=== PATIENT | female | born 1990 | race Caucasian/White ===

== ENCOUNTER 2021-12-05 03:14 | Emergency (ER) | payer OTHER, SELFPAY ==
--- NOTE | ~2021-12-05 | XR_ITS ---
EXAMINATION: XR chest 2V DATE: 12/05/2021 05:31 INDICATION: Epigastric and back pain TECHNIQUE: PA and lateral views of the chest were obtained. COMPARISON: None FINDINGS: The lungs are clear with no focal airspace opacities, pulmonary edema, pleural effusion or pneumothor ax. The cardiomediastinal silhouette is normal. Mild thoracic spondylosis with minimal anterior wedgi ng of a couple mid thoracic vertebral bodies. IMPRESSION: 1. No acute cardiopulmonary disease. Reviewed, dictated and finalized at location A.
[2021-12-05 03:15] VITALS: BP 135/77; PULSE 102; RESP 16; TEMP 36.1; O2SAT 100
[2021-12-05 04:09] LABS: Basophils Percent Auto 0.3 % (0.2-1.2); Eosinophils Absolute Auto 0.1 K/mm3 (0-0.3); Eosinophils Percent Auto 1.2 % (0-4.4); Hematocrit 37.7 % (37.0-47.0); Hemoglobin 12.6 g/dL (12.0-15.0); Immature Granulocyte Absolute 0.02 K/mm3 (0.00-0.031); Immature Granulocyte Percent A 0.2 % (0-0.5); Lymphocytes Absolute Auto 3.82 K/mm3 (0.9-3.2); Mean Corpuscular HGB Conc 33.4 g/dl (32-36); Mean Corpuscular Hemoglobin 27.6 pg (26-34); Mean Corpuscular Volume 82.7 fl (80-100); Mean Platelet Volume 9.6 fl (7.4-10.4); Monocytes Absolute Auto 0.5 K/mm3 (0.1-0.6); Monocytes Percent Auto 5.7 % (2.6-8.5); Neutrophils Absolute Auto 4.6 K/mm3 (1.3-6.7); Neutrophils Percent Auto 50.6 % (45.5-73.1); Platelet Count Result 281 k/mm3 (150-375); Red Blood Count 4.56 M/mm3 (4.2-5.4); Red Cell Distribution Width 13.1 % (11.5-14.5); White Blood Count 9.1 K/mm3 (4.5-10.0)
[2021-12-05 04:14] LABS: Appearance Urine Clear (Clear); Bacteria Urine Trace /hpf; Bilirubin Urine 1+ (Negative); Blood Urine Negative (Negative); Color Urine Yellow (Yellow); Glucose Urine UA Negative (Negative); Ketones Urine Trace mg/dL (Negative); Leukocyte Esterase Ur 3+ LEU/UL (Negative); Mucus Urine Rare /lpf; Nitrate Urine Negative (Negative); Protein Urine Trace mg/dL (Negative); Specific Grav Ur >= 1.030 (1.001-1.035); Squamous Epithelial Cell Urine Many /hpf (Few); Urobilinogen Urine 0.2 mg/dL (<2.0); WBC Urine 31-50 /hpf; pH Urine 5.5 (5.0-9.0)
[2021-12-05 04:20] LABS: Add Urine Microscopic? YES
[2021-12-05 04:21] LABS: Alanine Aminotransferase 18 U/L (6-35); Albumin Level 3.9 g/dL (3.5-5.1); Alkaline Phosphatase 70 U/L (38-126); Anion Gap 9 mmol/L (8-16); Aspartate Amino Transferase 19 U/L (14-36); Bilirubin,Total 0.3 mg/dL (0.2-1.3); Blood Urea Nitrogen 15 mg/dL (7-17); Calcium 9.4 mg/dL (8.4-10.2); Carbon Dioxide 21 mmol/L (22-30); Chloride 105 mmol/L (98-107); Estimated CRCL calculation 124 ml/min; Estimated Glomerular Filt Rate > 60; Glucose 121 mg/dL (65-110); Lipase 205 U/L (23-300); Potassium 3.8 mmol/L (3.4-5.0); Sodium 135 mmol/L (137-145)
--- NOTE | 2021-12-05 04:44 | ECG_ITS ---
Measurements Intervals [place] Rate: 70 P: 22 UT: 193 QRS: 42 QRSD: 96 T: 38 QT: 379 QTc: 411 Interpretive Statements SINUS RHYTHM NORMAL ECG NO PREVIOUS ECG AVAILABLE FOR COMPARISON Electronically Signed On 12-05-2021 6:31:09 CDT by Shaji Buckley D.O.
[2021-12-05] MEDS: SODIUM CHLORIDE 0.9% IV 1,000 ML 999 ML IV CONT (05:00)
[2021-12-05] MEDS: MAG HYDROX/AL HYDROX/SIMETH 30 ML UDC PO (05:01)
[2021-12-05] MEDS: FAMOTIDINE 20 MG/2 ML VIAL IV PUSH (05:01)
[2021-12-05 05:07] LABS: D Dimer 0.37 ug/mL (<0.48)
[2021-12-05 05:13] LABS: NT Pro B Type Natriuretic Pept 25 pg/mL (5-100)
--- NOTE | 2021-12-05 05:14 | ED.GENADULT ---
HPI - General Adult General Chief complaint: Abdominal Pain Stated complaint: abdominal pain and upper back pain Time Seen by Provider: 12/05/21 03:51 History of Present Illness HPI narrative: This is a 31-year-old female presenting to the ED with a chief complaint of epigastric pain that radiates through her chest up into her back. Patient states that the pain started at 1:00 a.m. this morning. She describes as a stabbing pain that radiates to her back, is 6/10 in intensity, comes and goes. She experiences once 2 and half weeks ago but did not seek medical care time. At that point resulting in its own. There are no exacerbating or alleviating factors. Patient denies nausea vomiting or diarrhea. She denies fever, chills or productive cough. She denies lower extremity edema, history of blood clots, recent trauma surgery or cancer. The patient has been taking a significant amount of Motrin without any relief. Related Data Allergies Allergy/AdvReac Type Severity Reaction Status Date / Time No Known Allergies Verified 01/19/10 14:17 Review of Systems Review of Systems: CONSTITUTIONAL: Denies night sweats. EYES: No eye pain ENT: Denies rhinorrhea CARDIOVASCULAR: Denies palpitations RESPIRATORY: Denies hemoptysis GASTROINTESTINAL: Denies hematemesis GENITOURINARY: Denies hematuria. SKIN: Denies rash MUSCULOSKELETAL: Denies myalgia. NEUROLOGIC: Denies weakness. PSYCHIATRIC: Denies delusions Course Vital Signs Vital signs: Vital Signs Temperature 97 F L 12/05/21 03:15 Pulse Rate 102 H 12/05/21 03:15 Respiratory Rate 16 12/05/21 03:15 Blood Pressure 135/77 12/05/21 03:15 Pulse Oximetry 100 12/05/21 03:15 Oxygen Delivery Room Air 12/05/21 03:15 Temperature 97 F L 12/05/21 03:15 Pulse Rate 102 H 12/05/21 03:15 Respiratory Rate 16 12/05/21 03:15 Blood Pressure 135/77 12/05/21 03:15 Pulse Oximetry 100 12/05/21 03:15 Oxygen Delivery Room Air 12/05/21 03:15 Medical Decision Making [facility] Narrative Medical decision making narrative: This is a 31-year-old female presenting to the ED with epigastric pain that radiates to her chest and back. Differential is broad and includes gastritis, peptic ulcer disease, gallbladder disease, pulmonary embolism, musculoskeletal pain. The patient's abdominal exam is benign and CT imaging is not indicated at this time. Lab work including CMP, lipase, CBC, troponin BNP and D-dimer ordered. Patient is not given a treatment with Pepcid and Maalox. Chest x-ray was unremarkable. Lab work was within acceptable limits. D-dimer was negative the patient is low risk no further evaluation for PE is required. The only positive finding on the patient's workup was a urinalysis that showed 31-50 white blood cells, 6-10 red blood cells, +3 leuk esterases. When the question the patient but she denies any urinary symptoms. she denies vaginal discharge or irritation. She does not have CVA tenderness. She is monogamous with her fiance and has no concern for STDs at this time. While her urinalysis is definitely indicative of UTI I am not sure if I can attribute her epigastric and upper back pain to a UTI. Upon re-evaluation the patient's heart rate has improved with fluids. the patient's abdominal pain has improved with the Maalox and the Pepcid. At this time her presentation is most consistent with gastritis. She will be discharged home with a 6 week prescription for Pepcid. Differential Diagnosis Differential Diagnosis: Gastritis, peptic ulcer disease, ACS, pulmonary embolism, pneumonia, MSK Vital Signs Vital Signs: Vital Signs Temperature 97 F L 12/05/21 03:15 Pulse Rate 102 H 12/05/21 03:15 Respiratory Rate 16 12/05/21 03:15 Blood Pressure 135/77 12/05/21 03:15 Pulse Oximetry 100 12/05/21 03:15 Oxygen Delivery Room Air 12/05/21 03:15 Temperature 97 F L 12/05/21 03:15 Pulse Rate 102 H 12/05/21 03:15 Respiratory Rate
[2021-12-05 05:48] LABS: Troponin I < 0.012 ng/mL (0.000-0.034)
[2021-12-05 06:40] VITALS: PULSE 89; RESP 16; O2SAT 99
== END 2021-12-05 06:40 | disposition home or self-care (01) ==
PROVIDERS: Emergency Provider Emergency Medicine
DX: K29.70 Gastritis, unspecified, without bleeding (principal); N39.0 Urinary tract infection, site not specified
CPT/HCPCS: 36415; 71046; 80053; 81001; 81025; 83690; 83880; 84484; 85025; 85380; 87086; 93005; 96361; 96374; 99284; A9270; J7030

== ENCOUNTER 2022-04-01 11:21 | Emergency (ER) | payer OTHER, SELFPAY ==
[2022-04-01 11:30] VITALS: BP 121/77; PULSE 113; RESP 16; TEMP 36.3; O2SAT 99
--- NOTE | 2022-04-01 11:52 | ED.GENADULT ---
HPI - General Adult General Chief complaint: Skin/Abscess/Foreign Body Stated complaint: lump on chest Source: patient Mode of arrival: ambulatory Limitations: no limitations History of Present Illness HPI narrative: Patient presents for evaluation of a bump to the the sternal region for awhile . In the last few days she has noted worsening symptoms. She now reports redness. She denies any drainage from the affected area. No fever, chills, nausea, vomiting. She is not diabetic. She does not smoke. She has not tried any therapies to assist with her symptoms. No additional complaints or concerns. Related Data Allergies Allergy/AdvReac Type Severity Reaction Status Date / Time No Known Allergies Verified 01/19/10 14:17 Review of Systems Review of Systems: CONSTITUTIONAL: Denies fever, chills, or sweats. EYES: Denies visual changes, redness, or discharge. ENT: Denies rhinorrhea, congestion, sore throat, or otalgia. CARDIOVASCULAR: Denies chest pain, palpitations, or edema. RESPIRATORY: Denies cough or dyspnea. GASTROINTESTINAL: Denies abdominal pain, nausea, vomiting, or diarrhea. GENITOURINARY: Denies dysuria or hematuria. SKIN: Reports painful erythematous lesion to sternal region MUSCULOSKELETAL: Denies back pain, joint pain, or myalgia. NEUROLOGIC: Denies headache, numbness, dizziness, or weakness. PSYCHIATRIC: Denies anxiety or depression. PMFSH Past Medical History Medical History No pertinent past medical history Surgical History Surgical History (Updated 04/01/22 @ 12:05 by Heber Madrid, [facility], ) No pertinent past surgical history Family History Family History Mother Family history non-contributory Social History Social History Smoking status: Never smoker Substance use: never Gender identity (if verbalized by the patient): Female Sexual Orientation (if Verbalized by the Patient): Straight or Heterosexual Spiritual care concerns: No Exam Narrative: GENERAL: Well-appearing, well-nourished, and in no acute distress. HEAD: Normocephalic, atraumatic. EYES: PERRLA and EOMI. ENT: Nares clear, no rhinorrhea or epistaxis. Mucous membranes moist. Oropharynx without tonsillar hypertrophy exudate or other lesions. Bilateral TMs pearly frausto nonbulging NECK: Supple. No adenopathy or masses. No carotid bruits or JVD CHEST: Clear to auscultation. No respiratory distress. No wheezes rales or rhonchi HEART: Regular rate and rhythm. No murmur heard. Normal peripheral pulses. ABDOMEN: Soft, nontender, nondistended, normal active bowel sounds. EXTREMITIES: Normal range of motion. No edema. SKIN: Approximately 2 cm of erythema with underlying induration noted to sternal region which is tender to palpation NEURO: No focal deficits. Alert and oriented x3. PSYCH: Normal mood and affect. Course Course Emergency Course: This is a 31-year-old female who presented for evaluation painful erythematous area to the sternum. Her exam is consistent with infected sebaceous cyst. There is no fluctuant area suggesting drainable fluid collection. Place her on Bactrim and Keflex. She should follow up with plastics to have cyst excision. She was advised not to manipulate area. Go to the ER for systemic signs of infection. Patient in agreement with plan of care. Level of Care: Express Care Visit Vital Signs Vital signs: Vital Signs Temperature 36.3 C L 04/01/22 11:30 Pulse Rate 113 H 04/01/22 11:30 Respiratory Rate 16 04/01/22 11:30 Blood Pressure 121/77 04/01/22 11:30 Pulse Oximetry 99 04/01/22 11:30 Temperature 36.3 C L 04/01/22 11:30 Pulse Rate 113 H 04/01/22 11:30 Respiratory Rate 16 04/01/22 11:30 Blood Pressure 121/77 04/01/22 11:30 Pulse Oximetry 99 04/01/22 11:30 Medic
== END 2022-04-01 12:08 | disposition home or self-care (01) ==
PROVIDERS: Emergency Provider Nurse Practitioner
DX: L72.3 Sebaceous cyst (principal)
CPT/HCPCS: 99213; G0463

== ENCOUNTER 2022-08-01 17:28 | Emergency (ER) | payer OTHER, SELFPAY ==
--- NOTE | ~2022-08-01 | XR_ITS ---
EXAMINATION: XR chest 2V Exam Date/Time: 08/01/2022 17:52 CDT HISTORY: BACK UPPER L.CHEST SIDE PAIN GOING DOWN L.ARM. Comparison: 12/05/2021. RESULT: Lines, tubes, and devices: None. Lungs and pleura: Left hemidiaphragm elevation. Mildly decreased lung volumes with crowding. Cardiomediastinal silhouette: Stable. Other: No acute osseous or upper abdominal finding. IMPRESSION: No acute cardiopulmonary process. Reviewed, dictated and finalized at location K.
--- NOTE | 2022-08-01 17:30 | ECG_ITS ---
Measurements Intervals [place] Rate: 104 P: 47 AR: 201 QRS: 14 QRSD: 90 T: 52 QT: 342 QTc: 451 Interpretive Statements SINUS TACHYCARDIA BASELINE ARTIFACT- I, II, III, AVR, AVL, AVF BORDERLINE ECG COMPARED TO ECG 12/05/2021 05:16:08 SINUS TACHYCARDIA NOW PRESENT Electronically Signed On 08-01-2022 21:11:36 CDT by Shaji Buckley D.O.
[2022-08-01 17:38] VITALS: BP 139/84; PULSE 106; RESP 18; TEMP 36.2; O2SAT 100
[2022-08-01 17:43] LABS: Basophils Percent Auto 0.3 % (0.2-1.2); Eosinophils Absolute Auto 0.1 K/mm3 (0-0.3); Hemoglobin 13.6 g/dL (12.0-15.0); Immature Granulocyte Absolute 0.03 K/mm3 (0.00-0.031); Immature Granulocyte Percent A 0.3 % (0-0.5); Lymphocytes Absolute Auto 4.15 K/mm3 (0.9-3.2); Lymphocytes Percent Auto 36.3 % (18.3-44.2); Mean Corpuscular HGB Conc 33.2 g/dl (32-36); Mean Corpuscular Hemoglobin 27.7 pg (26-34); Mean Corpuscular Volume 83.5 fl (80-100); Mean Platelet Volume 9.5 fl (7.4-10.4); Monocytes Absolute Auto 0.7 K/mm3 (0.1-0.6); Neutrophils Absolute Auto 6.4 K/mm3 (1.3-6.7); Neutrophils Percent Auto 56.1 % (45.5-73.1); Platelet Count Result 354 k/mm3 (150-375); Red Blood Count 4.91 M/mm3 (4.2-5.4); Red Cell Distribution Width 13.1 % (11.5-14.5); White Blood Count 11.4 K/mm3 (4.5-10.0)
[2022-08-01 17:51] LABS: Alanine Aminotransferase 27 U/L (6-35); Albumin Level 4.9 g/dL (3.5-5.1); Alkaline Phosphatase 80 U/L (38-126); Anion Gap 12 mmol/L (8-16); Aspartate Amino Transferase 39 U/L (14-36); Bilirubin,Total 0.5 mg/dL (0.2-1.3); Blood Urea Nitrogen 12 mg/dL (7-17); Calcium 8.9 mg/dL (8.4-10.2); Carbon Dioxide 24 mmol/L (22-30); Chloride 103 mmol/L (98-107); Estimated CRCL calculation 136 ml/min; Estimated Glomerular Filt Rate > 60; Glucose 98 mg/dL (65-110); Lipase 266 U/L (23-300); Potassium 4.2 mmol/L (3.4-5.0); Sodium 139 mmol/L (137-145)
[2022-08-01 18:02] LABS: Troponin I < 0.012 ng/mL (0.000-0.034)
[2022-08-01 18:07] LABS: Prothrombin Time 13.5 Seconds (11.1-14.7)
[2022-08-01 18:08] LABS: Partial Thromboplastin Time 29.8 SECONDS (22.3-36.8)
[2022-08-01 19:37] VITALS: BP 121/85; PULSE 121; RESP 19; TEMP 36.6; O2SAT 100
--- NOTE | 2022-08-01 19:40 | ED.CHESTPAIN ---
HPI - Chest Pain General Chief Complaint: Chest Pain <CRISS Prado Last Filed: 08/02/22 02:33> Stated Complaint: chest pain <CRISS Prado Last Filed: 08/02/22 02:33> Time Seen by Provider: 08/01/22 19:36 <CRISS Prado Last Filed: 08/02/22 02:33> History of Present Illness HPI narrative: Patient is a 32-year-old female here for evaluation of chest pain earlier today. Patient states that she developed a tightness in the left side of her chest while she was studying at rest. The pain was severe in nature and lasted for about 40 minutes. States she has never had pain like this in the past. Associated with some mild difficulty breathing. States that her pain is since resolved without intervention. She denies any sick contacts, nausea vomiting, cough or congestion, leg swelling or pain. She did recently have a 17-hour car ride to [place]. <CRISS Prado Last Filed: 08/02/22 02:33> Related Data Allergies/Adverse Reactions: Allergies Allergy/AdvReac Type Severity Reaction Status Date / Time No Known Allergies Verified 08/03/22 22:11 <CRISS Prado Last Filed: 08/02/22 02:33> Review of Systems Review of Systems: Gen: Denies fevers or chills Eyes: Denies eye pain or visual change ENT: Denies congestion Respiratory: Reports shortness of breath CV: Reports chest pain GI: Denies abdominal pain nausea, emesis or diarrhea : denies burning, urgency, frequency or hematuria Musculoskeletal: Denies back pain or muscle pain Neuro: Denies numbness, tingling, weakness or focal weakness Skin: Denies rash Except as documented, all other systems reviewed and negative <CRISS Prado Last Filed: 08/02/22 02:33> [facility] Past Medical History Medical History: Medical History Obesity (BMI 30-39.9) <CRISS Prado Filed: 08/02/22 02:33> Surgical History Surgical History: Surgical History No pertinent past surgical history <Marita White PA-C - Last Filed: 08/02/22 02:33> Family History Family History: Family History Mother No significant medical problems Father Unknown family medical history <Marita White PA-C - Last Filed: 08/02/22 02:33> Social History Social History: Social History Social History: She lives at home with her fiance and her 3 children. The children her age is 12 7 and 5. She is currently in college studying psychology. She does not drink alcohol, smoke or use illicit substances. Code status: Full code Surrogate decision maker: Kriss Vee (mother) Smoking status: Never smoker Second hand tobacco smoke exposure: No Alcohol intake: never Substance use: never Lack of Transportation: No Lack of Food: Never True Current Housing: I Have Housing Concerned About Future Housing: No Difficulty Paying Gas/Electric Bills: No Difficulty Paying for Meds: No Currently Unemployed: No Education: Trade/Vocational Certificate Difficulty w/ Childcare or Family Care: No Gender identity (if verbalized by the patient): Female Sexual Orientation (if Verbalized by the Patient): Straight or Heterosexual Spiritual care concerns: No <Marita White PA-C - Last Filed: 08/02/22 02:33> Exam Narrative: APPEARANCE: Well appearing, no pain in distress, well-nourished. Head: Normocephalic and atraumatic. EYES: PERRLA/EOMI, conjunctivae clear NOSE: No nasal drainage EARS: External ear normal in appearance THROAT: Oropharynx is clear. Mucous membranes are moist. NECK: Supple. No adenopathy, no masses. RESPIRATORY: Airway patent, respirations nonlabored. Clear to auscultation bilater
[2022-08-01 20:27] LABS: D Dimer < 0.27 ug/mL (<0.48)
[2022-08-01 20:53] VITALS: BP 115/78; PULSE 105; RESP 16; O2SAT 99
== END 2022-08-01 20:56 | disposition home or self-care (01) ==
PROVIDERS: Emergency Medicine; Emergency Provider Physician Assistant
DX: R07.89 Other chest pain (principal); R00.0 Tachycardia, unspecified
CPT/HCPCS: 36415; 71046; 80053; 83690; 84484; 85025; 85380; 85610; 85730; 93005; 99284

== ENCOUNTER 2022-08-03 22:10 | Inpatient (IN) | payer OTHER, SELFPAY ==
--- NOTE | ~2022-08-03 | MR_ITS ---
EXAMINATION: MR MRCP wo/w con/w 3D wo ind DATE: 08/04/2022 09:22 INDICATION: Gallstone pancreatitis. Abdominal pain. TECHNIQUE: Magnetic resonance imaging (MRI) of the abdomen was performed without and with 20 mL Multi Eli intravenous contrast. Sequences included coronal T2-weighted FS FSE, coronal T2-weighted FSE, a xial T1-weighted LAVA, coronal FS FIESTA, axial dual-echo T1-weighted SPGR, coronal lava-FLEX, sagitt al T2-weighted FSE, axial T2-weighted FSE, and axial DWI. Thick-slab T2-weighted FSE images were obta ined for magnetic resonance cholangiopancreatography (MRCP). Maximum intensity projection 3-D reconst ructions of the volumetric data were created by the technologist. Postcontrast sequences included cor onal LAVA-flex and time course of axial T1-weighted LAVA. COMPARISON: CT abdomen and pelvis 08/04/2022 FINDINGS: ABDOMEN MRI: There is periportal edema in the liver. There is a 14 mm arterially hyperenhancing mass in segment 4A of the liver without washout, likely focal nodular hyperplasia or transient hepatic int ensity difference. The spleen is normal. There are gallstones in the gallbladder, which is distended. Gallbladder wall thickening is noted. There is edema around the pancreas and at the italia hepatis. T he pancreas enhances throughout. The adrenal glands and kidneys are normal. There is a small sliding hiatal hernia. There are no dilated loops of bowel. ABDOMEN MRCP: The common duct is normal and measures 5 mm. No choledocholithiasis. IMPRESSION: 1. Acute cholecystitis. 2. Acute interstitial pancreatitis. 3. Normal common duct caliber. No choledocholithiasis. 4. Small sliding hiatal hernia. Reviewed, dictated and finalized at location E.
--- NOTE | ~2022-08-03 | CT_ITS ---
EXAMINATION: CT abdomen pelvis w con DATE: 08/04/2022 01:19 INDICATION: Right upper quadrant and epigastric pain TECHNIQUE: Computed tomography (CT) of the abdomen and pelvis was performed with 100 cc Omnipaque 350 intravenous contrast. The dose-length product was 1439.42 mGy-cm. Automated exposure control and ite rative reconstruction technique were employed. COMPARISON: CT dated 01/14/2007 FINDINGS: Lung bases are unremarkable. No significant pleural or pericardial effusion. Heart size is normal. No significant vascular abnormality. No lymphadenopathy. No abnormal pelvic masses or fluid c ollections. There is gallbladder distention with gallstones. There is mild inflammation at the italia hepatis irina cent to the common bile duct, suspicious for ascending cholangitis. The spleen, pancreas, adrenal gla nds and kidneys are unremarkable. Nonobstructive bowel pattern. IMPRESSION: 1. Cholelithiasis with gallbladder distention, mild inflammatory changes at the italia hepatis, concer onel for ascending cholangitis. Consider correlation with MRCP to exclude obstructing choledocholithi asis. Reviewed, dictated and finalized at location A. IMPRESSION: 1. Cholelithiasis with gallbladder distention, mild inflammatory changes at the italia hepatis, concerning for ascending cholangitis. Consider correlation with MRCP to exclude obstructing choledocholithiasis.
[2022-08-03 22:19] VITALS: BP 129/81; PULSE 94; RESP 14; TEMP 36.3; O2SAT 98
[2022-08-04] VITALS (13 sets, daily range): BP systolic 95–142; BP diastolic 50–88; PULSE 69–88; RESP 14–18; TEMP 36.4–36.6; O2SAT 96–100; BMI 37.1
--- NOTE | 2022-08-04 00:03 | ED.BACK ---
HPI - Back Pain/Injury General Chief Complaint: Back Pain/Injury <Sherin Yates PA-C - Last Filed: 08/04/22 03:52> Stated Complaint: back pain x 4 days <CRISS Alejandra Last Filed: 08/04/22 03:52> Time Seen by Provider: 08/03/22 23:41 <CRISS Alejandra Last Filed: 08/04/22 03:52> History of Present Illness HPI Narrative: 32-year-old female without pertinent past medical history reports for evaluation of midthoracic pain intermittently for 1 month, persistent and worsening over the past 2 days along with epigastric pain. She reports 3 episodes of vomiting in the past 2 days. Denies diarrhea, constipation, numbness weakness or tingling in her extremities, neck pain or headache, trauma to her back, bowel or bladder control, saddle anesthesia, IV drug use, fever. She does not take steroids or immunosuppressants. She reports worsening back pain with flexion, and worsening abdominal pain when she lays down. Denies history of abdominal surgeries. <CRISS Alejandra Last Filed: 08/04/22 03:52> Related Data Allergies/Adverse Reactions: Allergies Allergy/AdvReac Type Severity Reaction Status Date / Time No Known Allergies Verified 08/03/22 22:11 <Sherin Yates PA-C - Last Filed: 08/04/22 03:52> Review of Systems Review of Systems: CONSTITUTIONAL: Denies fever, chills EYES: Denies visual changes, redness, or discharge. ENT: Denies rhinorrhea, congestion, sore throat, or otalgia. CARDIOVASCULAR: Denies chest pain, palpitations, or edema. RESPIRATORY: Denies cough or dyspnea. GASTROINTESTINAL: See HPI GENITOURINARY: Denies dysuria or hematuria. SKIN: Denies rash or itching. MUSCULOSKELETAL: See HPI NEUROLOGIC: Denies headache, numbness, dizziness, or weakness. PSYCHIATRIC: Denies anxiety or depression. <CRISS Alejandra Last Filed: 08/04/22 03:52> [facility] Past Medical History Medical History: Medical History Obesity (BMI 30-39.9) <Sherin Yates PA-C - Last Filed: 08/04/22 03:52> Surgical History Surgical History: Surgical History No pertinent past surgical history <Sherin Yates PA-C - Last Filed: 08/04/22 03:52> Family History Family History: Family History Mother No significant medical problems Father Unknown family medical history <Sherin Yates PA-C - Last Filed: 08/04/22 03:52> Social History Social History: Social History Social History: She lives at home with her fiance and her 3 children. The children her age is 12 7 and 5. She is currently in college studying psychology. She does not drink alcohol, smoke or use illicit substances. Code status: Full code Surrogate decision maker: Krisssa Vee (mother) Smoking status: Never smoker Second hand tobacco smoke exposure: No Alcohol intake: never Substance use: never Lack of Transportation: No Lack of Food: Never True Current Housing: I Have Housing Concerned About Future Housing: No Difficulty Paying Gas/Electric Bills: No Difficulty Paying for Meds: No Currently Unemployed: No Education: Trade/Vocational Certificate Difficulty w/ Childcare or Family Care: No Gender identity (if verbalized by the patient): Female Sexual Orientation (if Verbalized by the Patient): Straight or Heterosexual Spiritual care concerns: No <Sherin Yates PA-C - Last Filed: 08/04/22 03:52> Exam Narrative: GENERAL: Well-appearing, in no acute distress. HEAD: Normocephalic EYES: PERRLA ENT: Nares clear. Mucous membranes moist. Oropharynx without tonsillar hypertrophy exudate or other lesions. NECK: Supple. CHEST: No respiratory distress. Clear to auscultation, no adventitious breath sounds. HEART: Regu
--- NOTE | 2022-08-04 00:21 | ECG_ITS ---
Measurements Intervals [place] Rate: 80 P: 14 FL: 202 QRS: 8 QRSD: 133 T: 28 QT: 358 QTc: 413 Interpretive Statements SINUS RHYTHM NORMAL ECG COMPARED TO ECG 08/01/2022 17:35:16 SINUS RHYTHM NOW PRESENT Electronically Signed On 08-04-2022 12:59:08 CDT by Sahji Buckley D.O.
[2022-08-04] MEDS: BELLADONNA ALK/PHENOB ELIX 10 ML, MAG HYDROX/ALUMINUM HYD/SIMETH 30 ML, LIDOCAINE HCL 2... PO (00:23)
[2022-08-04] MEDS: ONDANSETRON INJ 4 MG/2 ML VIAL IV PUSH (00:25)
[2022-08-04] MEDS: SODIUM CHLORIDE 0.9% IV 1,000 ML 999 ML IV CONT (00:25)
[2022-08-04] MEDS: FAMOTIDINE 20 MG/2 ML VIAL IV PUSH (00:26)
[2022-08-04] MEDS: KETOROLAC 30 MG/ML VIAL (*BKC) IV PUSH (00:26)
[2022-08-04 00:29] LABS: Basophils Percent Auto 0.4 % (0.2-1.2); Eosinophils Absolute Auto 0.1 K/mm3 (0-0.3); Eosinophils Percent Auto 1.1 % (0-4.4); Hematocrit 42.5 % (37.0-47.0); Hemoglobin 14.1 g/dL (12.0-15.0); Immature Granulocyte Absolute 0.02 K/mm3 (0.00-0.031); Immature Granulocyte Percent A 0.2 % (0-0.5); Lymphocytes Absolute Auto 1.82 K/mm3 (0.9-3.2); Lymphocytes Percent Auto 21.5 % (18.3-44.2); Mean Corpuscular HGB Conc 33.2 g/dl (32-36); Mean Corpuscular Hemoglobin 27.6 pg (26-34); Mean Corpuscular Volume 83.3 fl (80-100); Mean Platelet Volume 9.4 fl (7.4-10.4); Monocytes Absolute Auto 0.6 K/mm3 (0.1-0.6); Monocytes Percent Auto 6.9 % (2.6-8.5); Neutrophils Absolute Auto 5.9 K/mm3 (1.3-6.7); Neutrophils Percent Auto 69.9 % (45.5-73.1); Platelet Count Result 347 k/mm3 (150-375); Red Cell Distribution Width 13.4 % (11.5-14.5); White Blood Count 8.5 K/mm3 (4.5-10.0)
[2022-08-04 00:40] LABS: Alanine Aminotransferase 749 U/L (6-35); Albumin Level 4.7 g/dL (3.5-5.1); Alkaline Phosphatase 191 U/L (38-126); Anion Gap 9 mmol/L (8-16); Aspartate Amino Transferase 417 U/L (14-36); Bilirubin,Total 3.7 mg/dL (0.2-1.3); Blood Urea Nitrogen 7 mg/dL (7-17); Calcium 9.1 mg/dL (8.4-10.2); Carbon Dioxide 30 mmol/L (22-30); Chloride 99 mmol/L (98-107); Estimated CRCL calculation 135 ml/min; Estimated Glomerular Filt Rate > 60; Glucose 132 mg/dL (65-110); Lactic Acid Reflex 1.1 mmol/L (0.7-2.0); Lipase 1197 U/L (23-300); Potassium 3.9 mmol/L (3.4-5.0); Sodium 138 mmol/L (137-145)
[2022-08-04 00:52] LABS: Appearance Urine Turbid (Clear); Bacteria Urine 4+ /hpf; Bilirubin Urine 3+ (Negative); Blood Urine Negative (Negative); Color Urine Dark Yellow (Yellow); Glucose Urine UA Negative (Negative); Ketones Urine Trace mg/dL (Negative); Leukocyte Esterase Ur 2+ LEU/UL (Negative); Need Manual Microscopic Reviewed; Nitrate Urine Positive (Negative); Protein Urine 1+ mg/dL (Negative); Specific Grav Ur 1.035 (1.001-1.035); Squamous Epithelial Cell Urine Many /hpf (Few); WBC Urine 51-100 /hpf; pH Urine 5.5 (5.0-9.0)
[2022-08-04 00:54] LABS: Add Urine Microscopic? YES
[2022-08-04 01:01] LABS: Pregnancy On Board Control Positive; Urine Pregnancy Test Negative
[2022-08-04] MEDS: PIPERACILLN/TAZ 3.375GM/NS50ML 3.375 GM/50 ML BAG IVPB ×5 (02:33→23:39)
[2022-08-04] MEDS: HYDROmorphone HCL INJ (*CRX) 1 MG/ML SYR 0.5 MG IV PUSH (03:43)
--- NOTE | 2022-08-04 04:24 | ADMGEN ---
This patient, Mirtha Vee, was admitted to Medical Room 252-01. Patient/family oriented to hospital policies and general routines including ID bracelet, bed and alarms, visiting hours, pain management, procedures, bathroom and other care routines, personal items, smoking policy, room service/diet, and visiting hours. Information on how to activate the Rapid Response Team has been discussed. Patient/Family are encouraged to report perceived risks to care and to ask questions if they do not understand what they are told or what they should do.
[2022-08-04] MEDS: SODIUM CHLORIDE 0.9% IV 1,000 ML 125 ML IV CONT ×2 (04:33→20:30)
--- NOTE | 2022-08-04 05:37 | PM.IMHP ---
H&P: HPI History of Present Illness Date/Time: 08/04/22 05:37 Chief Complaint: Upper back pain Narrative: 32-year-old female with a past medical history of obesity who presented to the ER with upper back pain. She was evaluated in the ER 3 days prior for chest pain had chest x-ray and EKG that demonstrated no findings. Her pain at that time lasted about 40 minutes and resolved. Her pain was in the midthoracic area and in the left chest the other day. But she also had some associated epigastric pain that was mild. She had been having intermittent episodes of pain like this on and off for 1 month. She stated that she was not as concerned about her epigastric pain last time. However, over the last 2 days she has developed some worsening and more frequent epigastric pain and a couple of episodes of vomiting. Her back pain is worse when bends over and worsening abdominal pain when she lays down. Her back pain and abdominal pain seemed to occur simultaneously. She denies any correlation of her abdominal pain following meals. She has been having normal bowel movements without hematochezia, melena or a colic stools. She has not noticed any significant scleral icterus. She was told by the ER provider that her eyes were slightly icteric. She denies any significant history of GERD. She was given a GI cocktail and Pepcid in the ER without improvement in her symptoms. She has never had any prior abdominal surgeries. She denies having any fevers or chills. She denies alcohol use. She is obese but reports that her weight is been relatively stable. She denies any urinary symptoms. In the ER CT of the abdomen pelvis with contrast was performed demonstrated moderate gallbladder distention with numerous gallstones mild inflammation in the italia hepatis surrounding the common bile duct concerning for possible ascending cholangitis with likely choledocholithiasis. She does report daytime sleepiness, snoring and fatigue. She has never had a sleep study. Review of Systems Review of Systems: 12 systems were reviewed with pertinent positives and negatives per HPI. Except as documented in the HPI, all other systems were reviewed and are negative. FORMERLY [facility], [facility] Past Medical History Medical History (Updated 08/04/22 @ 07:38 by Grace Stokes DO) Obesity (BMI 30-39.9) Surgical History Surgical History No pertinent past surgical history Family History Family History (Updated 08/04/22 @ 07:28 by Grace Stokes DO) Mother No significant medical problems Father Unknown family medical history Social History Social History (Updated 08/04/22 @ 07:09 by Grace Stokes DO) Social History: She lives at home with her fiance and her 3 children. The children her age is 12 7 and 5. She is currently in college studying psychology. She does not drink alcohol, smoke or use illicit substances. Code status: Full code Surrogate decision maker: Kriss Vee (mother) Smoking status: Never smoker Second hand tobacco smoke exposure: No Alcohol intake: never Substance use: never Lack of Transportation: No Lack of Food: Never True Current Housing: I Have Housing Concerned About Future Housing: No Difficulty Paying Gas/Electric Bills: No Difficulty Paying for Meds: No Currently Unemployed: No Education: Trade/Vocational Certificate Difficulty w/ Childcare or Family Care: No Gender identity (if verbalized by the patient): Female Sexual Orientation (if Verbalized by the Patient): Straight or Heterosexual Spiritual care concerns: No Meds Home Medications and Allergies Home Medications Medication Instructions Recorded Confirmed Type No Home Medications 08/04/22 08/04/22 History Allergies Allergy/AdvReac Type Severity Reaction Status Date / Time No Known Allergies Verified 08/03/22 22:11 Vital Signs Vital Signs - 24 hr
--- NOTE | 2022-08-04 09:25 | WPDGICN ---
Assessment and Plan Assessment and plan (1) Epigastric pain: Code(s): R10.13 - Epigastric pain Status: Acute Assessment and Plan: this initially began on Saturday but then resolved spontaneously around the time she came to the emergency room. Now she has had pain for the past 2 days on and off which became much more severe late last evening (2) Gallstone pancreatitis: Code(s): K85.10 - Biliary acute pancreatitis without necrosis or infection Status: Acute Assessment and Plan: by laboratory studies it appears that this is a gallstone pancreatitis. Her gallbladder is distended with stones. common bile duct diameter is 8 mm on ultrasound. I have ordered an MRCP which has just been completed. I explained her that if she has choledocholithiasis, either confirmed by imaging, or implied by persistent elevations of LFTs, that we would perform ERCP. I explained that procedure as well as the risks such as the possibilities of worsening pancreatitis or of bleeding or perforation or prolonged hospitalization. (3) Transaminitis: Code(s): R74.01 - Elevation of levels of liver transaminase levels Status: Acute Assessment and Plan: Because these values were normal 2 days ago, I am certain it is not reflective of liver disease but all due to biliary tract disease. (4) Choledocholithiasis: Code(s): K80.50 - Calculus of bile duct without cholangitis or cholecystitis without obstruction Status: Acute Assessment and Plan: I will schedule her for an MRCP to be done today. Depending on results, she may need ERCP. (5) Obesity: Code(s): E66.9 - Obesity, unspecified Status: Acute Plan She is still nauseated. I told her if she could have clear liquids later today if she feels up to it. I discussed with her in her for jt the fact that because the pancreas is the main digestion gland and is stimulated by eating, that we would not give her any significant food until this is resolved. She question whether she would or could have her gallbladder removed during his hospitalization. I told her that it would be between her and the surgeon. Surgery has been consulted. GI Consult Note Consult date/time: 08/04/22 09:25 HPI: Mirtah Vee is a 32 year old female who presents emergency room during the night complaining of pain in the epigastric area radiating to the upper back. She had a similar pain 3 days ago when she was studying for exams. She had come to the emergency room at that time, But her pain dissipated somewhat. Laboratory studies were unremarkable. since going home, She has felt ill for the past 2 days with recurrent pain on and off and vomiting. in fact she states that the pain in her back never did completely go away. She also began vomiting when she tried to eat. She has not had a fever. She does not drink alcohol. The pain seems to be worse with few bends over. She denies having a fever. she takes no home medications. This time she was found have marked elevation of liver enzymes with bilirubin of 3.7, AST of 417, ALT 749 and alk-phos of 191. Likewise bilirubin is elevated. CT scan shows: IMPRESSION: 1. Cholelithiasis with gallbladder distention, mild inflammatory changes at the italia hepatis, concerning for ascending cholangitis. Consider correlation with MRCP to exclude obstructing choledocholithiasis. Review of Systems Review of Systems: All systems reviewed & are unremarkable except as noted in HPI and below PMFSH Past Medical History Medical History Obesity (BMI 30-39.9) Surgical History Surgical History No pertinent past surgical history Family History Family History Mother No significant medical problems Father Unknown family medical history
--- NOTE | 2022-08-04 11:47 | PM.CNGS ---
Assessment and Plan Assessment and plan (1) Gallstone pancreatitis: Code(s): K85.10 - Biliary acute pancreatitis without necrosis or infection Status: Acute Assessment and Plan: await MRCP, may need ERCP if choledocholithiasis noted, IV abx, will need interval cholecystectomy History of Present Illness Consult details Consult date: 08/04/22 Reason for consult: abdominal pain Requesting physician: Sherin Yates PA-C Narrative: The patient is a 32-year-old female presenting to the emergency department complaining of severe epigastric abdominal pain with radiation to her mid back. The patient reports the pain has been present for the last few days and has been worsening in nature. Initially a few days ago with similar symptoms but they resolved with some pain medication. At that time, her laboratory studies were completely normal. The patient re-presented with now more severe pain associated with nausea and bloating. Workup, including imaging, is significant for biliary pancreatitis. Review of Systems Constitutional: Constitutional: Reports as per HPI, Reports anorexia, Denies chills, Reports fatigue, Reports fever(s), Reports lethargy, Reports malaise, Reports poor appetite, Reports weakness, Denies weight gain and Denies weight loss Eyes: Eyes: Reports no additional eye complaints ENT: Reports system reviewed and no additional complaints, except as documented Cardiovascular: Cardiovascular: Reports no additional cardiovascular complaints Respiratory: Respiratory: Reports no additional respiratory complaints Gastrointestinal: Gastrointestinal: Reports as per HPI, Reports abdominal pain, Reports belching, Reports bloating, Reports GI cramping, Reports early satiety, Reports nausea and Denies vomiting Musculoskeletal: Musculoskeletal: Reports no additional musculoskeletal complaints Integumentary/Breasts: Skin/Breast: Reports system reviewed and no additional complaints, except as docu Neurologic: Reports system reviewed and no additional complaints, except as documented Psychiatric: Psychiatric: Reports no additional psychiatric complaints Endocrine: Endocrine: Reports no additional endocrine complaints Hematologic/Lymphatic: Hematologic/Lymphatic: Reports no additional hematologic/lymphatic complaints Allergic/Immunologic: Allergic/Immunologic: Reports no additional allergic/immunologic complaints [facility] Past Medical History Medical History Obesity (BMI 30-39.9) Surgical History Surgical History No pertinent past surgical history Family History Family History Mother No significant medical problems Father Unknown family medical history Social History Social History Social History: She lives at home with her fiance and her 3 children. The children her age is 12 7 and 5. She is currently in college studying psychology. She does not drink alcohol, smoke or use illicit substances. Code status: Full code Surrogate decision maker: Kriss Mariusz (mother) Smoking status: Never smoker Second hand tobacco smoke exposure: No Alcohol intake: never Substance use: never Lack of Transportation: No Lack of Food: Never True Current Housing: I Have Housing Concerned About Future Housing: No Difficulty Paying Gas/Electric Bills: No Difficulty Paying for Meds: No Currently Unemployed: No Education: Trade/Vocational Certificate Difficulty w/ Childcare or Family Care: No Gender identity (if verbalized by the patient): Female Sexual Orientation (if Verbalized by the Patient): Straight or Heterosexual Spiritual care concerns: No Meds Home Medications and Allergies Home Medications Medication Instructions Recorded Confirmed Type No Home Medi
--- NOTE | 2022-08-04 13:11 | PM.IMPN ---
Progress Note: A&P Assessment and Plan (1) Choledocholithiasis: Code(s): K80.50 - Calculus of bile duct without cholangitis or cholecystitis without obstruction Status: Acute (2) Epigastric pain: Code(s): R10.13 - Epigastric pain Status: Acute Plan # cholelithiasis with gallbladder distention - MRCP pending to evaluate for choledocholithiasis - appreciate GI consultation Dr. Jones: plan for MRCP and possible ERCP if positive for choledocholithiasis - appreciate general surgery consultation Dr. Larios: possible cholecystectomy - antibiotics: Zosyn, mild leukocytosis resolved - IV fluids normal saline 125 cc/hour - pain control p.r.n. Dilaudid - antiemetics p.r.n. Zofran Diet: Clear liquids DVT prophylaxis: ambulatory Code status: Full code Disposition: Pending MRCP and digital marketing consultant evaluation Social: Family updated bedside Subjective Date/time seen: 08/04/22 13:11 Interval history: patient seen examined. She is doing well no complaints. Vitals are stable. Patient is tolerating clear liquid diet. Waiting results of MRCP. Possibility of ERCP if MRCP is positive, patient also may need a cholecystectomy. appreciate GI and surgery consultation. She denies fever, chills, nausea vomiting, diarrhea , chest pain, abdominal pain. Review of Systems Review of Systems: 10 point ROS complete, negative other than what is specified in HPI. Exam Narrative: -- GENERAL: Pleasant woman in no acute distress. Well-nourished. - EYES: EOMI. Anicteric. - HENT: Moist mucous membranes. - LUNGS: Clear to auscultation bilaterally, no wheezing, rhonchi, or rales. - CARDIOVASCULAR: Regular rate and rhythm. No murmur. No JVD. - ABDOMEN: Soft, non-tender and non-distended. No palpable masses. - EXTREMITIES: No edema. Peripheral pulses 2+. Non-tender. - NEUROLOGIC: No focal neurological deficits. CN II-XII grossly intact. - PSYCHIATRIC: Awake, Alert and oriented x 3. Appropriate mood and affect. - SKIN: No rashes or lesions. Warm. - LYMPH: No cervical lymphadenopathy. Objective Data Vital Signs Vital Signs: Vital Signs - 24 hr 08/03/22 22:19 08/04/22 01:17 08/04/22 00:45 Temperature 36.3 C L Pulse Rate 94 76 Respiratory Rate 14 14 Blood Pressure 129/81 142/88 H Pulse Oximetry 98 100 100 Oxygen Delivery Room Air 08/04/22 01:00 08/04/22 01:17 08/04/22 01:35 Temperature Pulse Rate Respiratory Rate Blood Pressure Pulse Oximetry 96 100 100 Oxygen Delivery 08/04/22 01:55 08/04/22 02:05 08/04/22 02:17 Temperature Pulse Rate 88 88 Respiratory Rate 16 15 Blood Pressure 118/80 Pulse Oximetry 99 99 100 Oxygen Delivery 08/04/22 02:30 08/04/22 02:31 08/04/22 05:50 Temperature 36.4 C Pulse Rate 86 77 Respiratory Rate 14 18 Blood Pressure 113/76 103/68 Pulse Oximetry 99 98 100 Oxygen Delivery Intake/Output Intake/Output: Intake & Output 08/01/22 08/02/22 08/03/22 08/04/22 23:59 23:59 23:59 23:59 Intake Total 1100 Balance 1100 Meds/Results Medications: Active Medications Generic Name Dose Route Start Last Admin Trade Name Freq PRN Reason Stop Dose Admin Hydromorphone HCl 0.5 mg 08/04/22 07:34 Hydromorphone Hcl Inj (*Crx) 1 Mg/Ml Syr IV PUSH Q3H PRN Pain Rated 7-10 Sodium Chloride 1,000 mls @ 125 mls/hr 08/04/22 03:20 08/04/22 04:33 Normal Saline Iv IV CONT 125 mls/hr .Q8H KIMBERLY Administration Piperacillin/Tazobactam/Dextrose 3.375 gm in 50 mls @ 100 mls/hr 08/04/22 07:00 08/04/22 12:50 Zosyn 3.375 Gm/Ns 50 Ml IVPB 100 mls/hr Q6HR KIMBERLY Administration Ondansetron HCl 4 mg 08/04/22 03:20 Ondansetron Inj 4 Mg/2 Ml Vial IV PUSH Q4H PRN Nausea Radiology Results: ITS Impressions Abdomen/Pelvis CT 08/04/22 08:06 IMPRESSION: 1. Cholelithiasis with gallbladder distention, mild inflammatory changes at the italia hepatis, concerning for ascending cholangitis. Cons
[2022-08-05 05:02] VITALS: BP 94/52; PULSE 73; RESP 20; TEMP 36.9; O2SAT 99
[2022-08-05] MEDS: PIPERACILLN/TAZ 3.375GM/NS50ML 3.375 GM/50 ML BAG IVPB ×4 (05:20→23:28)
[2022-08-05] MEDS: SODIUM CHLORIDE 0.9% IV 1,000 ML 125 ML IV CONT ×3 (05:20→23:28)
[2022-08-05 06:12] LABS: Alanine Aminotransferase 370 U/L (6-35); Albumin Level 3.6 g/dL (3.5-5.1); Alkaline Phosphatase 143 U/L (38-126); Anion Gap 6 mmol/L (8-16); Aspartate Amino Transferase 149 U/L (14-36); Bilirubin,Total 2.3 mg/dL (0.2-1.3); Blood Urea Nitrogen 5 mg/dL (7-17); Calcium 8.1 mg/dL (8.4-10.2); Carbon Dioxide 23 mmol/L (22-30); Chloride 109 mmol/L (98-107); Estimated CRCL calculation 136 ml/min; Estimated Glomerular Filt Rate > 60; Glucose 103 mg/dL (65-110); Lipase 512 U/L (23-300); Potassium 3.8 mmol/L (3.4-5.0); Sodium 138 mmol/L (137-145)
--- NOTE | 2022-08-05 08:37 | WPDGIPROGNO ---
Progress Note: A&P Assessment and Plan (1) Epigastric pain: Code(s): R10.13 - Epigastric pain Status: Acute Assessment and Plan: this initially began on Saturday but then resolved spontaneously around the time she came to the emergency room. Now she has had pain for the past 2 days on and off which became much more severe late last evening (2) Gallstone pancreatitis: Code(s): K85.10 - Biliary acute pancreatitis without necrosis or infection Status: Acute Assessment and Plan: by laboratory studies it appears that this is a gallstone pancreatitis. Her gallbladder is distended with stones. common bile duct diameter is 8 mm on ultrasound. I have ordered an MRCP which has just been completed. I explained her that if she has choledocholithiasis, either confirmed by imaging, or implied by persistent elevations of LFTs, that we would perform ERCP. I explained that procedure as well as the risks such as the possibilities of worsening pancreatitis or of bleeding or perforation or prolonged hospitalization. (3) Transaminitis: Code(s): R74.01 - Elevation of levels of liver transaminase levels Status: Acute Assessment and Plan: Because these values were normal 2 days ago, I am certain it is not reflective of liver disease but all due to biliary tract disease. (4) Choledocholithiasis: Code(s): K80.50 - Calculus of bile duct without cholangitis or cholecystitis without obstruction Status: Acute Assessment and Plan: I will schedule her for an MRCP to be done today. Depending on results, she may need ERCP. Bilirubin is slightly lower. MRCP does not show choledocholithiasis. It would miss sludge if that was present. I told her that tentatively I will schedule ERCP for tomorrow but if her bilirubin and LFTs normalize then it would not be necessary as we could assume that she had passed a stone. She understands that she will also need a cholecystectomy. (5) Obesity: Code(s): E66.9 - Obesity, unspecified Status: Acute Plan She is still nauseated. I told her if she could have clear liquids later today if she feels up to it. I discussed with her in her for jt the fact that because the pancreas is the main digestion gland and is stimulated by eating, that we would not give her any significant food until this is resolved. She question whether she would or could have her gallbladder removed during his hospitalization. I told her that it would be between her and the surgeon. Surgery has been consulted. Subjective Date/time seen: 08/05/22 08:37 She is feeling better today. Much less pain. Not really hungry however. She is tolerating clear liquids. blood pressure has been running low, 90s systolic, but she does not feel particularly lightheaded. Exam Const: General: alert and obese Nutritional Appearance: obese Orientation/consciousness: patient oriented x3 Resp: Auscultation: clear to auscultation bilaterally Cardio: Rhythm: regular rhythm GI: Inspection: normal to inspection GI Palp: Yes Tenderness to palpation present (GI) ( epigastric) Auscultation: normal bowel sounds Neuro: General: patient oriented x3 Objective Data Vital Signs Vital Signs: Vital Signs - 24 hr 08/04/22 14:37 08/04/22 14:00 08/04/22 21:46 Temperature 36.6 C 36.6 C Pulse Rate 73 69 Respiratory Rate 16 16 Blood Pressure 95/65 L 101/50 L Pulse Oximetry 96 97 99 Oxygen Delivery Room Air 08/05/22 05:02 Temperature 36.9 C Pulse Rate 73 Respiratory Rate 20 Blood Pressure 94/52 L Pulse Oximetry 99 Oxygen Delivery Intake/Output Intake/Output: Intake & Output 08/02/22 08/03/22 08/04/22 08/05/22 23:59 23:59 23:59 23:59 Intake Total 3600 1100 Balance 3600 1100 Meds/Results Medications: Active Medications Generic Name Dose Route Start Last Admin Trade Name Freq PRN Reason Stop Dose Admin Hydromorphone HCl 0.
--- NOTE | 2022-08-05 10:38 | PM.PNGS ---
Progress Note: A&P Assessment and Plan (1) Gallstone pancreatitis: Code(s): K85.10 - Biliary acute pancreatitis without necrosis or infection Status: Acute Assessment and Plan: MRCP reviewed, labs and exam improved, recheck labs in am and if cont trend towards normalization will proceed with interval cholecystectomy, if worsening will likely need ERCP, d/w pt and she is in full understanding Subjective Subjective Date/Time Seen: 08/05/22 10:38 Interval history: feels much better, pain largely resolved Review of Systems Review of Systems: All systems reviewed & are unremarkable except as noted in HPI and below Exam Const: General: cooperative, comfortable and no acute distress Resp: Auscultation: clear to auscultation bilaterally Cardio: Rate: regular rate Rhythm: regular rhythm GI: Inspection: normal to inspection and non-distended GI Palp: No abdominal tenderness, Yes Soft to palpation, No Tenderness to palpation present (GI), No Guarding due to palpation present (GI) and No Rigid due to palpation Objective Data Vital Signs Vital Signs: Vital Signs - 24 hr 08/04/22 14:37 08/04/22 14:00 08/04/22 21:46 Temperature 36.6 C 36.6 C Pulse Rate 73 69 Respiratory Rate 16 16 Blood Pressure 95/65 L 101/50 L Pulse Oximetry 96 97 99 Oxygen Delivery Room Air 08/05/22 05:02 Temperature 36.9 C Pulse Rate 73 Respiratory Rate 20 Blood Pressure 94/52 L Pulse Oximetry 99 Oxygen Delivery Intake/Output Intake/Output: Intake & Output 08/02/22 08/03/22 08/04/22 08/05/22 23:59 23:59 23:59 23:59 Intake Total 3600 1580 Balance 3600 1580 Meds/Results Medications: Active Medications Generic Name Dose Route Start Last Admin Trade Name Freq PRN Reason Stop Dose Admin Hydromorphone HCl 0.5 mg 08/04/22 07:34 Hydromorphone Hcl Inj (*Crx) 1 Mg/Ml Syr IV PUSH Q3H PRN Pain Rated 7-10 Sodium Chloride 1,000 mls @ 125 mls/hr 08/04/22 03:20 08/05/22 05:20 Normal Saline Iv IV CONT 125 mls/hr .Q8H KIMBERLY Administration Piperacillin/Tazobactam/Dextrose 3.375 gm in 50 mls @ 100 mls/hr 08/04/22 07:00 08/05/22 05:50 Zosyn 3.375 Gm/Ns 50 Ml IVPB Infused Q6HR KIMBERLY Infusion Ondansetron HCl 4 mg 08/04/22 03:20 Ondansetron Inj 4 Mg/2 Ml Vial IV PUSH Q4H PRN Nausea Radiology Results: ITS Impressions Abdomen/Pelvis CT 08/04/22 08:06 IMPRESSION: 1. Cholelithiasis with gallbladder distention, mild inflammatory changes at the italia hepatis, concerning for ascending cholangitis. Consider correlation with MRCP to exclude obstructing choledocholithiasis. MRCP 08/04/22 15:17 IMPRESSION: 1. Acute cholecystitis. 2. Acute interstitial pancreatitis. 3. Normal common duct caliber. No choledocholithiasis. 4. Small sliding hiatal hernia. Labs Labs: Laboratory Results - last 24 hr 08/05/22 05:38 Sodium 138 Potassium 3.8 Chloride 109 H Carbon Dioxide 23 Anion Gap 6 L BUN 5 L Creatinine 0.70 Estim Creat Clear Calc 136 Estimated GFR > 60 Glucose 103 Calcium 8.1 L Total Bilirubin 2.3 H AST 149 H ALT 370 H Alkaline Phosphatase 143 H Total Protein 6.0 L Albumin 3.6 Lipase 512 H
--- NOTE | 2022-08-05 12:26 | PM.IMPN ---
Progress Note: A&P Assessment and Plan (1) Gallstone pancreatitis: Code(s): K85.10 - Biliary acute pancreatitis without necrosis or infection Status: Acute (2) Obesity: Code(s): E66.9 - Obesity, unspecified Status: Acute (3) Acute cholecystitis: Code(s): K81.0 - Acute cholecystitis Status: Acute Plan # acute cholecystitis - MRCP 08/04/22: acute cholecystitis, acute interstitial pancreatitis, normal common bile duct, no choledocholithiasis - appreciate GI? consultation Dr. Jones: continue to monitor, MRCP negative for choledocholithiasis, does not appear to have a indication for ERCP - appreciate general surgery consultation Dr. Larios: will make NPO midnight for possible cholecystectomy tomorrow - antibiotics: will continue for now Zosyn - IV fluids normal saline 125 cc/hour, with soft blood pressure 94/52, will continue aggressive hydration - pain control p.r.n. Dilaudid - antiemetics p.r.n. Zofran Diet: Clear liquids, NPO midnight DVT prophylaxis: ambulatory Code status: Full code Disposition:? likely cholecystectomy tomorrow Social: Family updated bedside Subjective Date/time seen: 08/05/22 12:26 Interval history: Patient seen examined. She is doing well no new complaints. Patient's symptoms are so improved significantly. MRCP is negative for biliary obstruction. the findings are consistent with acute cholecystitis. Patient NPO midnight for possible cholecystectomy tomorrow Dr. Larios. patient understands and agrees with plan. She denies fever, chills, nausea vomiting, diarrhea. Review of Systems Review of Systems: 10 point ROS complete, negative other than what is specified in HPI. Exam Narrative: - GENERAL: Pleasant woman in no acute distress. Well-nourished. - EYES: EOMI. Anicteric. - HENT: Moist mucous membranes. - LUNGS: Clear to auscultation bilaterally, no wheezing, rhonchi, or rales. - CARDIOVASCULAR: Regular rate and rhythm. No murmur. No JVD. - ABDOMEN: Soft, non-tender and non-distended. no rebound or gaurding - EXTREMITIES: No edema. Peripheral pulses 2+. Non-tender. - NEUROLOGIC: No focal neurological deficits. CN II-XII grossly intact. - PSYCHIATRIC: Awake, Alert and oriented x 3. Appropriate mood and affect. - SKIN: No rashes or lesions. Warm. - LYMPH: No cervical lymphadenopathy. Objective Data Vital Signs Vital Signs: Vital Signs - 24 hr 08/04/22 14:37 08/04/22 14:00 08/04/22 21:46 Temperature 36.6 C 36.6 C Pulse Rate 73 69 Respiratory Rate 16 16 Blood Pressure 95/65 L 101/50 L Pulse Oximetry 96 97 99 Oxygen Delivery Room Air 08/05/22 05:02 Temperature 36.9 C Pulse Rate 73 Respiratory Rate 20 Blood Pressure 94/52 L Pulse Oximetry 99 Oxygen Delivery Intake/Output Intake/Output: Intake & Output 08/02/22 08/03/22 08/04/22 08/05/22 23:59 23:59 23:59 23:59 Intake Total 3600 1580 Balance 3600 1580 Meds/Results Medications: Active Medications Generic Name Dose Route Start Last Admin Trade Name Freq PRN Reason Stop Dose Admin Hydromorphone HCl 0.5 mg 08/04/22 07:34 Hydromorphone Hcl Inj (*Crx) 1 Mg/Ml Syr IV PUSH Q3H PRN Pain Rated 7-10 Sodium Chloride 1,000 mls @ 125 mls/hr 08/04/22 03:20 08/05/22 05:20 Normal Saline Iv IV CONT 125 mls/hr .Q8H KIMBERLY Administration Piperacillin/Tazobactam/Dextrose 3.375 gm in 50 mls @ 100 mls/hr 08/04/22 07:00 08/05/22 05:50 Zosyn 3.375 Gm/Ns 50 Ml IVPB Infused Q6HR KIMBERLY Infusion Ondansetron HCl 4 mg 08/04/22 03:20 Ondansetron Inj 4 Mg/2 Ml Vial IV PUSH Q4H PRN Nausea Radiology Results: ITS Impressions Abdomen/Pelvis CT 08/04/22 08:06 IMPRESSION: 1. Cholelithiasis with gallbladder distention, mild inflammatory changes at the italia hepatis, concerning for ascending cholangitis. Consider correlation with MRCP to exclude obstructing choledocholithiasis. MRCP 08/04/22 15:17 IMPRESSION: 1. Acute
[2022-08-05 14:23] VITALS: BP 120/73; PULSE 79; RESP 18; TEMP 37.1; O2SAT 100
[2022-08-05] MEDS: ONDANSETRON INJ 4 MG/2 ML VIAL IV PUSH (17:13)
[2022-08-05 21:01] VITALS: BP 120/73; PULSE 84; RESP 20; TEMP 36.8; O2SAT 100
[2022-08-05] MEDS: KETOROLAC 15 MG/ML VIAL (*BKC) IV PUSH (21:05)
[2022-08-06] VITALS (10 sets, daily range): BP systolic 104–124; BP diastolic 55–77; PULSE 60–99; RESP 14–24; TEMP 36.4–36.8; O2SAT 91–99
[2022-08-06] MEDS: PIPERACILLN/TAZ 3.375GM/NS50ML 3.375 GM/50 ML BAG IVPB ×2 (05:15→12:11)
[2022-08-06 05:33] LABS: Hematocrit 36.1 % (37.0-47.0); Hemoglobin 11.7 g/dL (12.0-15.0); Mean Corpuscular HGB Conc 32.4 g/dl (32-36); Mean Corpuscular Hemoglobin 27.9 pg (26-34); Mean Corpuscular Volume 86.2 fl (80-100); Mean Platelet Volume 9.4 fl (7.4-10.4); Platelet Count Result 247 k/mm3 (150-375); Red Blood Count 4.19 M/mm3 (4.2-5.4); Red Cell Distribution Width 13.7 % (11.5-14.5); White Blood Count 5.7 K/mm3 (4.5-10.0)
[2022-08-06 05:45] LABS: Alanine Aminotransferase 320 U/L (6-35); Albumin Level 3.5 g/dL (3.5-5.1); Alkaline Phosphatase 133 U/L (38-126); Anion Gap 8 mmol/L (8-16); Aspartate Amino Transferase 138 U/L (14-36); Bilirubin,Total 1.4 mg/dL (0.2-1.3); Blood Urea Nitrogen 5 mg/dL (7-17); Calcium 8.2 mg/dL (8.4-10.2); Carbon Dioxide 22 mmol/L (22-30); Chloride 108 mmol/L (98-107); Estimated CRCL calculation 121 ml/min; Estimated Glomerular Filt Rate > 60; Glucose 99 mg/dL (65-110); Lipase 315 U/L (23-300); Potassium 3.9 mmol/L (3.4-5.0); Sodium 138 mmol/L (137-145)
--- NOTE | 2022-08-06 06:15 | WPDGIPROGNO ---
Progress Note: A&P Assessment and Plan (1) Epigastric pain: Code(s): R10.13 - Epigastric pain Status: Acute Assessment and Plan: this initially began on Saturday but then resolved spontaneously around the time she came to the emergency room. Now she has had pain for the past 2 days on and off which became much more severe late last evening (2) Gallstone pancreatitis: Code(s): K85.10 - Biliary acute pancreatitis without necrosis or infection Status: Acute Assessment and Plan: by laboratory studies it appears that this is a gallstone pancreatitis. Her gallbladder is distended with stones. common bile duct diameter is 8 mm on ultrasound. I have ordered an MRCP which has just been completed. I explained her that if she has choledocholithiasis, either confirmed by imaging, or implied by persistent elevations of LFTs, that we would perform ERCP. I explained that procedure as well as the risks such as the possibilities of worsening pancreatitis or of bleeding or perforation or prolonged hospitalization. 08/06/2022 likely still elevated but LFTs decreasing. I suspect she passed a stone. I do not think she will need ERCP. Possible cholecystectomy today (3) Transaminitis: Code(s): R74.01 - Elevation of levels of liver transaminase levels Status: Acute Assessment and Plan: Because these values were normal 2 days ago, I am certain it is not reflective of liver disease but all due to biliary tract disease. (4) Choledocholithiasis: Code(s): K80.50 - Calculus of bile duct without cholangitis or cholecystitis without obstruction Status: Acute Assessment and Plan: I will schedule her for an MRCP to be done today. Depending on results, she may need ERCP. Bilirubin is slightly lower. MRCP does not show choledocholithiasis. It would miss sludge if that was present. I told her that tentatively I will schedule ERCP for tomorrow but if her bilirubin and LFTs normalize then it would not be necessary as we could assume that she had passed a stone. She understands that she will also need a cholecystectomy. 08/06/2022 no proof of common bile duct stones, hence I would think would be appropriate to schedule cholecystectomy. (5) Obesity: Code(s): E66.9 - Obesity, unspecified Status: Acute Plan She is still nauseated. I told her if she could have clear liquids later today if she feels up to it. I discussed with her in her for jt the fact that because the pancreas is the main digestion gland and is stimulated by eating, that we would not give her any significant food until this is resolved. She question whether she would or could have her gallbladder removed during his hospitalization. I told her that it would be between her and the surgeon. Surgery has been consulted. Subjective Date/time seen: 08/06/22 06:15 No significant change in her symptoms. LFTs continue to drop suggesting she probably passed a stone. Exam Const: General: alert and obese Nutritional Appearance: obese Orientation/consciousness: patient oriented x3 Resp: Auscultation: clear to auscultation bilaterally Cardio: Rhythm: regular rhythm GI: Inspection: normal to inspection Auscultation: normal bowel sounds Neuro: General: patient oriented x3 Objective Data Vital Signs Vital Signs: Vital Signs - 24 hr 08/05/22 14:23 08/05/22 08:30 08/05/22 20:00 Temperature 37.1 C Pulse Rate 79 Respiratory Rate 18 Blood Pressure 120/73 Pulse Oximetry 100 Oxygen Delivery Room Air Room Air 08/05/22 21:01 08/06/22 04:38 Temperature 36.8 C 36.5 C Pulse Rate 84 64 Respiratory Rate 20 20 Blood Pressure 120/73 104/58 L Pulse Oximetry 100 99 Oxygen Delivery Intake/Output Intake/Output: Intake & Output 08/03/22 08/04/22 08/05/22 08/06/22 23:59 23:59 23:59 23:59 Intake Total 3600 5050 300 Balance 3600 5050 300 Meds/Results Me
[2022-08-06] MEDS: SODIUM CHLORIDE 0.9% IV 1,000 ML 125 ML IV CONT (08:38)
--- NOTE | 2022-08-06 08:49 | WPDANESEPPF ---
Anes - Initial Pre Proc Eval Procedure: Operation Date: 08/06/22 13:30 Proposed Procedures p Laparoscopic Cholecystectomy - Magali Larios MD Date/Time: 08/06/22 08:49 Surgeon: Grace Stokes DO Pre Op Diagnosis: Choledocholithiasis Patient Data Age: 32 Gender: F Height: 1.75 m Weight: 114.2 kg Last Vital Signs Temp 36.5 C 08/06/22 04:38 Pulse 64 08/06/22 04:38 Resp 20 08/06/22 04:38 BP 104/58 L 08/06/22 04:38 Pulse Ox 99 08/06/22 04:38 O2 Del Method Room Air 08/05/22 20:00 Allergies Allergy/AdvReac Type Severity Reaction Status Date / Time No Known Allergies Verified 08/03/22 22:11 Home Medications Medication Instructions Recorded Confirmed Type No Home Medications 08/04/22 08/04/22 History Laboratory Tests 08/06/22 05:18 WBC 5.7 K/mm3 (4.5-10.0) RBC 4.19 L M/mm3 (4.2-5.4) Hgb 11.7 L g/dL (12.0-15.0) Hct 36.1 L % (37.0-47.0) MCV 86.2 fl (80-100) MCH 27.9 pg (26-34) MCHC 32.4 g/dl (32-36) RDW 13.7 % (11.5-14.5) Plt Count 247 k/mm3 (150-375) MPV 9.4 fl (7.4-10.4) Sodium 138 mmol/L (137-145) Potassium 3.9 mmol/L (3.4-5.0) Chloride 108 H mmol/L (98-107) Carbon Dioxide 22 mmol/L (22-30) Anion Gap 8 mmol/L (8-16) BUN 5 L mg/dL (7-17) Creatinine 0.80 mg/dL (0.7-1.0) Estim Creat Clear Calc 121 ml/min Estimated GFR > 60 (59 - ) Glucose 99 mg/dL (65-110) Calcium 8.2 L mg/dL (8.4-10.2) Total Bilirubin 1.4 H mg/dL (0.2-1.3) AST 138 H U/L (14-36) ALT 320 H U/L (6-35) Alkaline Phosphatase 133 H U/L (38-126) Total Protein 6.0 L g/dL (6.3-8.2) Albumin 3.5 g/dL (3.5-5.1) Lipase 315 H U/L (23-300) Patient hx anesthesia problems: none Family hx anesthesia problems: none Results Review: All pre-operative results and documents have been reviewed as part of the pre-operative evaluation. [facility] Past Medical History Medical History Obesity (BMI 30-39.9) Surgical History Surgical History No pertinent past surgical history Family History Family History Mother No significant medical problems Father Unknown family medical history Social History Social History Social History: She lives at home with her fiance and her 3 children. The children her age is 12 7 and 5. She is currently in college studying psychology. She does not drink alcohol, smoke or use illicit substances. Code status: Full code Surrogate decision maker: Kriss Vee (mother) Smoking status: Never smoker Second hand tobacco smoke exposure: No Alcohol intake: never Substance use: never Lack of Transportation: No Lack of Food: Never True Current Housing: I Have Housing Concerned About Future Housing: No Difficulty Paying Gas/Electric Bills: No Difficulty Paying for Meds: No Currently Unemployed: No Education: Trade/Vocational Certificate Difficulty w/ Childcare or Family Care: No Gender identity (if verbalized by the patient): Female Sexual Orientation (if Verbalized by the Patient): Straight or Heterosexual Spiritual care concerns: No Anes - Eval Final PreProcedure Day of Procedure 08/06/22 08:49 Patient weight: obese Heart: regular rate and rhythm Lungs: clear to auscultation and normal air movement Airway: Mallampati scale class II Neurological: alert and oriented Last oral intake: >/= 8 hours ASA classification: II Emergent: no Anesthetic plan: proceed Anesthesia type and monitoring: general GIVS Results Review: All pre-operative results and documents have been reviewed as part of the pre-operative evaluation. Informed Consent: The patient's anesthet
--- NOTE | 2022-08-06 09:21 | WPDHPUPDATE1 ---
History and Physical Update Update Date/Time: 08/06/22 09:21 History and Physical has been reviewed, including an updated exam of the patient. There are NO changes in the patient's condition. Risks, benefits, and alternatives have been discussed and questions answered. Patient agrees to proceed with procedure. enzymes normalizing, plan for cholecystectomy today
--- NOTE | 2022-08-06 11:45 | PC.NURSE ---
pt to surgery via bed
[2022-08-06] MEDS: LACTATED RINGERS 1,000 ML 30 ML IV CONT ×2 (12:11→15:12)
--- NOTE | 2022-08-06 12:41 | PM.IMPN ---
Progress Note: A&P Assessment and Plan (1) Acute cholecystitis: Code(s): K81.0 - Acute cholecystitis Status: Acute Plan # acute cholecystitis # likely passed gallstone for gallstone pancreatitis and choledocholithiasis - MRCP 08/04/22:? acute cholecystitis, acute interstitial pancreatitis, normal common bile duct, no choledocholithiasis -LFTs and lipase continued to downtrend lipase 1197 to 315, AST 417 to 138, ALT 749 to 320, Alk phos 191 to 133 - appreciate GI? consultation Dr. Jones:? continue to monitor, MRCP negative for choledocholithiasis, does not appear to have a indication for ERCP - appreciate general surgery consultation Dr. Larios: Cholecystectomy today - antibiotics: Zosyn - IV fluids normal saline 125 cc/hour, blood pressure now stable - pain control p.r.n. Dilaudid - antiemetics p.r.n. Zofran Diet: NPO for cholecystectomy DVT prophylaxis:?ambulatory Code status:?Full code Disposition:? cholecystectomy today Social: Family updated bedside Subjective Date/time seen: 08/06/22 12:41 Interval history: Patient seen and examined. She is doing well no new complaints. LFTs and lipase continued down trend. Patient is NPO for cholecystectomy this afternoon with Dr. Larios. She denies fever, chills, nausea vomiting or diarrhea. Review of Systems Review of Systems: 10 point ROS complete, negative other than what is specified in HPI. Exam Narrative: - GENERAL: ? Pleasant woman in no acute distress. Well-nourished. - EYES: EOMI. Anicteric. - HENT: Moist mucous membranes. - LUNGS: Clear to auscultation bilaterally, no wheezing, rhonchi, or rales. - CARDIOVASCULAR: Regular rate and rhythm. No murmur. No JVD. - ABDOMEN: Soft, non-tender and non-distended.? no rebound or gaurding - EXTREMITIES: No edema. Peripheral pulses 2+. Non-tender. - NEUROLOGIC: No focal neurological deficits. CN II-XII grossly intact. - PSYCHIATRIC: Awake, Alert and oriented x 3. Appropriate mood and affect. - SKIN: No rashes or lesions. Warm. - LYMPH: No cervical lymphadenopathy. Objective Data Vital Signs Vital Signs: Vital Signs - 24 hr 08/05/22 14:23 08/05/22 20:00 08/05/22 21:01 Temperature 37.1 C 36.8 C Pulse Rate 79 84 Respiratory Rate 18 20 Blood Pressure 120/73 120/73 Pulse Oximetry 100 100 Oxygen Delivery Room Air 08/06/22 04:38 08/06/22 08:30 08/06/22 12:13 Temperature 36.5 C 36.8 C Pulse Rate 64 70 Respiratory Rate 20 16 Blood Pressure 104/58 L 113/71 Pulse Oximetry 99 99 Oxygen Delivery Room Air Room Air Intake/Output Intake/Output: Intake & Output 08/03/22 08/04/22 08/05/22 08/06/22 23:59 23:59 23:59 23:59 Intake Total 3600 5050 1300 Balance 3600 5050 1300 Meds/Results Medications: Active Medications Generic Name Dose Route Start Last Admin Trade Name Freq PRN Reason Stop Dose Admin Fentanyl Citrate 25 mcg 08/06/22 08:49 Fentanyl Citrate Inj (*Crx) 100 Mcg/2 Ml Vial IV PUSH Q2M PRN Pain Hydromorphone HCl 0.5 mg 08/04/22 07:34 Hydromorphone Hcl Inj (*Crx) 1 Mg/Ml Syr IV PUSH Q3H PRN Pain Rated 7-10 Sodium Chloride 1,000 mls @ 125 mls/hr 08/04/22 03:20 08/06/22 08:38 Normal Saline Iv IV CONT 125 mls/hr .Q8H KIMBERLY Administration Piperacillin/Tazobactam/Dextrose 3.375 gm in 50 mls @ 100 mls/hr 08/04/22 07:00 08/06/22 12:11 Zosyn 3.375 Gm/Ns 50 Ml IVPB 100 mls/hr Q6HR KIMBERLY Administration Lactated Ringer's 1,000 mls @ 30 mls/hr 08/06/22 08:50 08/06/22 12:11 Lr - Lactated Ringers Iv IV CONT 30 mls/hr .Q24H KIMBERLY Administration Lactated Ringer's 1,000 mls @ 30 mls/hr 08/06/22 08:50 Lr - Lactated Ringers Iv IV CONT .Q24H KIMBERLY Ondansetron HCl 4 mg 08/04/22 03:20 08/05/22 17:13 Ondansetron Inj 4 Mg/2 Ml Vial IV PUSH 4 mg Q4H PRN Administration Nausea Ondansetron HCl 4 mg 08/06/22 08:49 Ondansetron Inj 4 Mg/2 Ml Vial IV PUSH ONCE PRN Nausea Oxycodone HCl 5
[2022-08-06] MEDS: BUPIVACAINE/EPINEPHRINE 0.5% 50 ML VIAL 30 ML INFILTRATE (14:34)
--- NOTE | 2022-08-06 15:17 | W.PM.PROC2 ---
Procedure Note - Detailed Date of Procedure 08/06/22 Pre-op Diagnosis acute cholecystitis, choledocholithiasis Post-op Diagnosis Same Procedure Performed Laparoscopic cholecystectomy Surgeon Magali aLrios MD Anesthesia General Indications 32 y/o F presenting c acute cholecystitis, choledocholithiasis. After admit, pt labs have began to normalize and MRCP was subsequently negative for CBD obstruction. Findings acute cholecystitis with cholelithiasis Description of Procedure The patient was taken to the operating room placed in the supine position. After adequate induction of general anesthesia, the patient was prepped and draped in normal sterile fashion. A time-out was then performed to verify the patient's identity as well as the procedure being performed. I then made a 5 mm incision in the infraumbilical region. Through this, a Veress needle was placed into the peritoneal cavity and CO2 gas was then insufflated. After adequate pneumoperitoneum was achieved, the Veress needle was removed and a 5 mm optiview trocar was placed through this incision under direct visualization. I then placed the laparoscope through this trocar site and under direct visualization placed a further 12 mm subxiphoid port as well as 2 additional 5 mm ports in the right upper abdomen. The gallbladder was then identified and was noted to be inflamed, distended, and full of gallstones. I was able to place a grasper at the dome of the gallbladder and this was retracted anterior and cephalad up over the liver. A 2nd retractor was then placed at the infundibulum and retracted laterally, this allowed visualization of the triangle of Calot. I then was able to visualize the cystic duct in its entirety from its proximal insertion into the gallbladder, to its distal junction with the common hepatic/common bile duct junction. At this point, I carefully skeletonized the proximal cystic duct with the [place] dissector. I then clipped and transected the proximal cystic duct. Next I visualized the cystic artery. Again the artery was skeletonized, clipped, and transected. I then used the Bovie cautery to take down the peritoneal attachments of the gallbladder off the liver bed. This was somewhat difficult given the amount of inflammation in the posterior space. Once the gallbladder specimen was completely detached, an endo-pouch was placed through the 12 mm port site. I then placed the gallbladder specimen into the Endo pouch and removed the endo-pouch from the 12 mm port site. The specimen will now be sent to pathology for further review. I then copiously irrigated the right upper quadrant. Some mild oozing was noted in the liver bed and this was controlled with the bovie cautery. Hemostasis was noted in the liver bed, the clips were noted to be in good position on both the cystic duct stump and the cystic artery stump. No other pathology was noted in the right upper quadrant. I then moved the laparoscope to the subxiphoid port. No iatrogenic injury or other pathology was noted in the lower abdomen. I then closed the 12 mm trocar site under direct visualization using the Avtar cone and 0 Vicryl suture. At this point, the abdomen was desufflated and all ports removed. All port sites were then closed with 4.O Monocryl subcuticular sutures. Dermabond was placed on each incision. The patient tolerated the procedure well, was extubated in the operating room postoperative and will be transferred to the recovery room in stable condition Estimated Blood Loss 20 Drains No Packing No Pathology Yes Complications No immediate complications Condition Stable Disposition PACU [facility] Billing Surgery - Charge Forward: Surgery Billing
[2022-08-06] MEDS: fentaNYL CITRATE INJ (*CRX) 100 MCG/2 ML VIAL 25 MCG IV PUSH ×6 (15:31→16:25)
[2022-08-06] MEDS: SCOPOLAMINE 1.5 MG PATCH TRANSDERM (15:44)
--- NOTE | 2022-08-06 16:55 | PC.NURSE ---
pt returned to room from PACU, family updated on pt condition
[2022-08-06] MEDS: HYDROcodone/acetaminophen (*CRX) 7.5-325 MG TABLET 1 TAB PO (17:15)
[2022-08-06] MEDS: HYDROmorphone HCL INJ (*CRX) 1 MG/ML SYR 0.5 MG IV PUSH ×2 (18:12→21:13)
[2022-08-07] MEDS: HYDROmorphone HCL INJ (*CRX) 1 MG/ML SYR 0.5 MG IV PUSH (01:46)
[2022-08-07 05:16] LABS: Hematocrit 36.3 % (37.0-47.0); Hemoglobin 11.7 g/dL (12.0-15.0); Mean Corpuscular HGB Conc 32.2 g/dl (32-36); Mean Corpuscular Volume 86.8 fl (80-100); Mean Platelet Volume 9.5 fl (7.4-10.4); Platelet Count Result 275 k/mm3 (150-375); Red Blood Count 4.18 M/mm3 (4.2-5.4); Red Cell Distribution Width 13.4 % (11.5-14.5); White Blood Count 10.2 K/mm3 (4.5-10.0)
[2022-08-07 05:31] LABS: Alanine Aminotransferase 315 U/L (6-35); Albumin Level 3.6 g/dL (3.5-5.1); Alkaline Phosphatase 121 U/L (38-126); Anion Gap 7 mmol/L (8-16); Aspartate Amino Transferase 148 U/L (14-36); Blood Urea Nitrogen 6 mg/dL (7-17); Calcium 8.5 mg/dL (8.4-10.2); Carbon Dioxide 25 mmol/L (22-30); Chloride 104 mmol/L (98-107); Estimated CRCL calculation 157 ml/min; Estimated Glomerular Filt Rate > 60; Glucose 121 mg/dL (65-110); Magnesium 1.8 mg/dL (1.6-2.3); Potassium 4.1 mmol/L (3.4-5.0); Sodium 136 mmol/L (137-145)
[2022-08-07] MEDS: HYDROcodone/acetaminophen (*CRX) 7.5-325 MG TABLET 1 TAB PO ×3 (05:43→14:56)
[2022-08-07 06:00] VITALS: BP 135/82; PULSE 61; RESP 21; TEMP 36.2; O2SAT 100
[2022-08-07 08:09] VITALS: O2SAT 99
--- NOTE | 2022-08-07 11:05 | PM.PNGS ---
Progress Note: A&P Assessment and Plan (1) Acute cholecystitis: Code(s): K81.0 - Acute cholecystitis Status: Acute Assessment and Plan: S/p lap patricia yesterday. Seems like she is mostly dealing with gas pains from insufflation. Encouraged transitioning to oral analgesics and walking the halls this morning. If pain improves and is controlled with oral analgesics, then she could discharge later today. Follow-up in [address] Larios. Continue low fat diet. (2) Gallstone pancreatitis: Code(s): K85.10 - Biliary acute pancreatitis without necrosis or infection Status: Acute Plan I have discussed the patient's case and plan of care with Dr. Larios. Subjective Subjective Date/Time Seen: 08/07/22 09:05 Post Op day: 1 (Laparoscopic cholecystectomy) Patient reports: still having pain, tolerating a regular diet, voiding w/o difficulty, no flatus, no bowel movement and afebrile Interval history: Patient seen this morning. Main complaint is right shoulder/back pain and pain near her epigastric trochar incision. She has ambulated to the bathroom but not into the halls. She is voiding well. She denies nausea or vomiting. She has tolerated liquids and done well so far with solids for breakfast. She did require IV dilaudid overnight but has taken just a pain pill this morning. No other complaints at this time. Review of Systems Review of Systems: All systems reviewed & are unremarkable except as noted in HPI and below Constitutional: Constitutional: Reports as per HPI, Reports no additional constitutional complaints, Denies chills and Denies fever(s) Cardiovascular: Cardiovascular: Reports no additional cardiovascular complaints, Denies chest pain and Denies leg edema Respiratory: Respiratory: Reports no additional respiratory complaints, Denies cough and Denies dyspnea Gastrointestinal: Gastrointestinal: Reports as per HPI and Reports no additional gastrointestinal complaints Neurologic: Reports system reviewed and no additional complaints, except as documented, Denies Abnormal speech present, Denies headache(s) and Denies focal weakness Exam Const: General: comfortable, no acute distress and awake Orientation/consciousness: patient oriented x3 GI: Inspection: non-distended and incision (incisions dry and intact) GI Palp: Yes Soft to palpation and Yes Tenderness to palpation present (GI) (incisional) Auscultation: normal bowel sounds Neuro: General: moves all extremities and no focal motor deficits Extrem: General: no calf tenderness and no edema Psych: Mental Status: mental status grossly normal Insight: Good insight present (Psych) Objective Data Vital Signs Vital Signs: Vital Signs - 24 hr 08/06/22 12:13 08/06/22 15:12 08/06/22 15:25 Temperature 98.2 F 97.6 F Pulse Rate 70 99 84 Respiratory Rate 16 22 H 24 H Blood Pressure 113/71 116/55 L 114/74 Pulse Oximetry 99 94 98 Oxygen Delivery Room Air Simple Face Mask Simple Face Mask Oxygen Flow Rate 10 10 08/06/22 15:40 08/06/22 15:55 08/06/22 16:10 Temperature Pulse Rate 62 60 72 Respiratory Rate 23 H 18 18 Blood Pressure 109/77 124/64 110/70 Pulse Oximetry 99 99 Oxygen Delivery Simple Face Mask Simple Face Mask Room Air Oxygen Flow Rate 10 10 08/06/22 16:25 08/06/22 17:55 08/06/22 22:08 Temperature 98.2 F 97.8 F Pulse Rate 78 72 60 Respiratory Rate 20 14 18 Blood Pressure 115/67 112/62 112/65 Pulse Oximetry 91 94 96 Oxygen Delivery Room Air Oxygen Flow Rate 08/07/22 06:00 08/07/22 08:09 Temperature 97.2 F L Pulse Rate 61 Respiratory Rate 21 H Blood Pressure 135/82 Pulse Oximetry 100 99 Oxygen Delivery Room Air Oxygen Flow Rate Intake/Output Intake/Output: Intake & Output 08/04/22 08/05/22 08/06/22 08/07/22 23:59 23:59 23:59 23:59 Intake Total 3600 5050 2240 720 Balance 3600 5050 2240 720 Meds/Results Medications: Active Medications Generic Name Dose Route Start Last Adm
--- NOTE | 2022-08-07 13:39 | WPDANESPN ---
Anes - Prog Note Post-Op Date/Time: 08/07/22 13:40 Vital Signs: Last Vital Signs Temp 36.2 C L 08/07/22 06:00 Pulse 61 08/07/22 06:00 Resp 21 H 08/07/22 06:00 BP 135/82 08/07/22 06:00 Pulse Ox 99 08/07/22 08:09 O2 Del Method Room Air 08/07/22 08:09 O2 Flow Rate 10 08/06/22 15:55 Pain Score (VAS): 0 I/O: Intake & Output 08/06/22 08/07/22 08/07/22 23:59 07:59 15:59 Intake Total 1940 600 240 Balance 1940 600 240 Laboratory Tests 08/07/22 05:02 08/07/22 05:02 08/07/22 05:02 WBC 10.2 H RBC 4.18 L Hgb 11.7 L Hct 36.3 L MCV 86.8 MCH 28.0 MCHC 32.2 RDW 13.4 Plt Count 275 MPV 9.5 Sodium 136 L Potassium 4.1 Chloride 104 Carbon Dioxide 25 Anion Gap 7 L BUN 6 L Creatinine 0.60 L Estim Creat Clear Calc 157 Estimated GFR > 60 Glucose 121 H Calcium 8.5 Magnesium 1.8 Total Bilirubin 1.0 AST 148 H ALT 315 H Alkaline Phosphatase 121 Total Protein 7.0 Albumin 3.6 Patient Feedback: Patient satisfied with anesthetic care.
[2022-08-07 14:00] VITALS: BP 102/60; PULSE 63; RESP 14; TEMP 36.6; O2SAT 100
--- NOTE | 2022-08-07 14:59 | PM.DS ---
DS: Admitting Diagnosis Discharge Date 08/07/22 Admitting Diagnosis Acute Cholecystitis Choledocholithiasis Gall Stone pancreatitis DS: Discharge Diagnosis Discharge Diagnosis (1) Acute cholecystitis: Code(s): K81.0 - Acute cholecystitis Status: Acute (2) Obesity: Code(s): E66.9 - Obesity, unspecified Status: Acute (3) Gallstone pancreatitis: Code(s): K85.10 - Biliary acute pancreatitis without necrosis or infection Status: Acute (4) Choledocholithiasis: Code(s): K80.50 - Calculus of bile duct without cholangitis or cholecystitis without obstruction Status: Acute DS: Summary Hospital Course Reason for hospitalization: Acute Cholecystitis Gall Stone Pancreatitis Choledoholithiasis Hospital Course: 32-year-old female with a past medical history of obesity who presented to the ER with upper back pain.? She was evaluated in the ER 3 days prior for chest pain had chest x-ray and EKG that demonstrated no findings.? Her pain at that time lasted about 40 minutes and resolved.?? In the ER CT of the abdomen pelvis with contrast was performed demonstrated moderate gallbladder distention with numerous gallstones mild inflammation in the [place] hepatis surrounding the common bile duct concerning for possible ascending cholangitis with likely choledocholithiasis.GI and Gen Surgery were cnsulted, underwent MRCP which was negative for choledocholithiasis. Underwent laparoscopic cholecystectomy by surgery. Post op stay was uneventful. Discharged home in stable condition. Status at Discharge Functional status at discharge: independent ambulation Overall status at discharge: patient is progressing back to baseline Time Spent with Patient Time attestation: Total time spent providing and/or coordinating discharge services: Time spent: Greater than 30 minutes Exam Narrative: - GENERAL: ? Pleasant woman in no acute distress. Well-nourished. - EYES: EOMI. Anicteric. - HENT: Moist mucous membranes. - LUNGS: Clear to auscultation bilaterally, no wheezing, rhonchi, or rales. - CARDIOVASCULAR: Regular rate and rhythm. No murmur. No JVD. - ABDOMEN: Soft, non-tender and non-distended.? no rebound or gaurding - EXTREMITIES: No edema. Peripheral pulses 2+. Non-tender. - NEUROLOGIC: No focal neurological deficits. CN II-XII grossly intact. - PSYCHIATRIC: Awake, Alert and oriented x 3. Appropriate mood and affect. - SKIN: No rashes or lesions. Warm. - LYMPH: No cervical lymphadenopathy. DS: Data Data Completed and Pending Pending studies at discharge: Pending at discharge 08/06/22 14:29 Surgical [PTH] Routine Labs on day of discharge: Labs from last 24 hours 08/07/22 05:02 WBC 10.2 H RBC 4.18 L Hgb 11.7 L Hct 36.3 L MCV 86.8 MCH 28.0 MCHC 32.2 RDW 13.4 Plt Count 275 MPV 9.5 Sodium 136 L Potassium 4.1 Chloride 104 Carbon Dioxide 25 Anion Gap 7 L BUN 6 L Creatinine 0.60 L Estim Creat Clear Calc 157 Estimated GFR > 60 Glucose 121 H Calcium 8.5 Magnesium 1.8 Total Bilirubin 1.0 AST 148 H ALT 315 H Alkaline Phosphatase 121 Total Protein 7.0 Albumin 3.6 Preliminary micro results at discharge 08/04/22 03:15 Blood Culture - Preliminary Blood 08/04/22 03:15 Blood Culture - Preliminary Blood Discharge Plan Discharge Attending physician on discharge: Jodie Pablo Consulting providers: Magali Larios; Mich Jones; Sherin Yates; Jarad García; Shaji Buckley; Sourav Huff V.; Eunice Velasco Discharging Clinician: Jodie Pablo Anticipated Discharge Date/Time: 08/07/22 14:58 Patient Disposition: Home, Self-Care Activity: other - see discharge instructions Diet: as tolerated Wound Care Instructions: follow printed instructions Discharge Instructions: DISCHARGE INSTRUCTION SHEET FOR HERNIA, GALLBLADDER AND APPENDIX SURGERIES DR. LARIOS PATIENT TO TAKE HOME 1. May shower in 24 hours, no
== END 2022-08-07 15:23 | disposition home or self-care (01) | DRG 263 ==
LOC: ANHED 08-04 02:28 → ANH2MED 08-04 03:45
PROVIDERS: Student in an Organized Health Care Education/Training Program; Surgery; Admitting Provider Internal Medicine; Emergency Provider Physician Assistant; Visit Provider Internal Medicine
PROC: 0FT44ZZ Resection of Gallbladder, Percutaneous Endoscopic Approach (ICD-10-PCS; CPT 47562; principal; 2022-08-06 13:30)
DX: K85.10 Biliary acute pancreatitis without necrosis or infection (principal); K80.00 Calculus of gallbladder with acute cholecystitis without obstruction; N30.01 Acute cystitis with hematuria; E66.9 Obesity, unspecified; Z68.37 Body mass index [BMI] 37.0-37.9, adult
CPT/HCPCS: 36415; 74177; 74183; 76376; 80053; 81001; 81025; 83605; 83690; 83735; 85025; 85027; 87040; 87086; 87088; 88304; 93005; 96361; 96365; 96375; 99285; A9270; A9577; G0378; G0379; J1100; J1170; J1885; J2250; J2405; J2543; J2704; J2710; J3010; J7030; J7120; Q9967